=== PATIENT | female | born 1965 ===

== ENCOUNTER 2024-08-19 06:13 | Outpatient (RCR) | payer BC, SELFPAY | END 2024-08-19 23:59 | disposition home or self-care (01) | LOC: RPT 06:13 | PROVIDERS: ATTENDING PHYSICIAN Internal Medicine Gastroenterology | DX: K59.02 Outlet dysfunction constipation (principal); M62.89 Other specified disorders of muscle; R10.2 Pelvic and perineal pain; N94.10 Unspecified dyspareunia; Z73.6 Limitation of activities due to disability | CPT/HCPCS: 97163; 97530 ==